=== PATIENT | female | born 1950 | race Caucasian/White ===

== ENCOUNTER → 2018-06-30 | Outpatient (CLI) | payer MEDICARE, MEDICAID ==
[~2018-06-30] MED LIST: CHOL200052 PO; ESCI20TA10 PO; LEVO75TA5 PO; OMNIPAQUE 350 MG/ML, 100ML BOTTLE ONE
== END | disposition home or self-care (01) ==
LOC: CFH 09:12
PROVIDERS: ATTEND Nurse Practitioner
DX: M51.26 Other intervertebral disc displacement, lumbar region (principal); M50.30 Other cervical disc degeneration, unspecified cervical region; M50.21 Other cervical disc displacement, high cervical region
CPT/HCPCS: 70460; 72141; 72146; 72148; 82565; Q9967

== ENCOUNTER → 2018-08-03 | Outpatient (CLI) | payer MEDICARE, MEDICAID ==
[~2018-08-03] MED LIST changes: -OMNIPAQUE 350 MG/ML, 100ML BOTTLE ONE
== END | disposition home or self-care (01) ==
LOC: STAR 08:36
PROVIDERS: ATTEND Obstetrics & Gynecology Female Pelvic Medicine and Reconstructive Surgery
DX: Z01.818 Encounter for other preprocedural examination (principal); N81.2 Incomplete uterovaginal prolapse; N39.3 Stress incontinence (female) (male); N95.0 Postmenopausal bleeding
CPT/HCPCS: 93005

== ENCOUNTER 2018-08-15 06:48 | Day surgery (SDC) | payer MEDICARE, MEDICAID ==
[~2018-08-15] VITALS: Ht 152.4 cm; Wt 68.3 kg
[~2018-08-15 06:48] MED LIST changes: +BUPIVACAINE/PF 0.25% ONE
[2018-08-15] MEDS ORDERED: EPINEPHRINE 1 MG/ML, 1ML ONE (06:49)
[2018-08-15] MEDS ORDERED: NEOMY/POLYMYXIN B GU IRR. 1 ML ONE (06:49)
[2018-08-15] MEDS ORDERED: LACTATED RINGERS 1,000 ML IV SCH (07:15)
[2018-08-15 07:40] VITALS: BP 106/72
[2018-08-15] MEDS ORDERED: GABAPENTIN 300 MG CAPSULE PO ONE (08:00)
[2018-08-15] MEDS ORDERED: SCOPOLAMINE PATCH, 1.5MG PATCH.TD72 TD ONE (08:00)
[2018-08-15] MEDS ORDERED: FENTANYL PF 250 MCG/5ML ONE (08:03)
[2018-08-15] MEDS ORDERED: MIDAZOLAM 1 MG/ML, 2ML ONE (08:03)
[2018-08-15] MEDS ORDERED: ROCURONIUM 10MG/ML,5ML ONE (08:04)
[2018-08-15] MEDS ORDERED: LIDOCAINE-MPF 2% ,5ML ONE (08:05)
[2018-08-15] MEDS ORDERED: PROPOFOL 10 MG/ML, 20ML ONE (08:05)
[2018-08-15] MEDS ORDERED: GLYCOPYRROLATE 0.2MG/1ML, 5ML ONE (08:49)
[2018-08-15] MEDS ORDERED: NEOSTIGMINE 1 MG/ML, 10ML ONE (08:49)
[2018-08-15] MEDS ORDERED: CEFOTETAN 2 GM ONE (08:49)
[2018-08-15] MEDS ORDERED: DEXAMETHASONE 4 MG/ML, 1ML ONE ×2 (09:07)
[2018-08-15] MEDS ORDERED: ONDANSETRON 2MG/ML, 2ML ONE ×2 (09:07)
[2018-08-15] MEDS ORDERED: ACETAMINOPHEN 325 MG TABLET PO PRN (09:30)
[2018-08-15] MEDS ORDERED: MEPERIDINE/PF 25MG/0.5ML IVPush PRN (09:30)
[2018-08-15] MEDS ORDERED: OXYcodone 5 MG/5 ML ORAL.SOL UDC PO PRN (09:30)
[2018-08-15] MEDS ORDERED: HYDROmorphone 2 MG/ML, 1ML IVPush PRN (09:30)
[2018-08-15] MEDS ORDERED: HALOPERIDOL 5 MG/ML IV PRN (09:30)
[2018-08-15] MEDS ORDERED: PROMETHAZINE 25 MG/ML, 1ML IV PRN (09:30)
[2018-08-15] MEDS ORDERED: hydrALAzine 20 MG/ML, 1ML IV PRN (09:30)
[2018-08-15] MEDS ORDERED: KETOROLAC 30 MG/1 ML ONE (10:43)
[2018-08-15] MEDS ORDERED: FENTANYL PF 100 MCG/2ML ONE (10:43)
[2018-08-15] MEDS: FENTANYL PF 100 MCG/2ML IV PRN ×2 (10:45→11:08)
[2018-08-15] MEDS ORDERED: KETOROLAC 30 MG/1 ML IVPush ONE (11:00)
[2018-08-15] MEDS ORDERED: OXYcodone 5 MG/5 ML ORAL.SOL UDC ONE (11:00)
== END 2018-08-15 17:25 | disposition home or self-care (01) ==
LOC: OUT 06:48
PROVIDERS: ATTEND Obstetrics & Gynecology Female Pelvic Medicine and Reconstructive Surgery
DX: D25.0 Submucous leiomyoma of uterus (principal); N81.4 Uterovaginal prolapse, unspecified; N84.0 Polyp of corpus uteri; N83.202 Unspecified ovarian cyst, left side; N83.201 Unspecified ovarian cyst, right side; N39.46 Mixed incontinence; N32.81 Overactive bladder; E03.9 Hypothyroidism, unspecified; Z98.890 Other specified postprocedural states
CPT/HCPCS: 57265; 57282; 57288; 58552; 88305; C1771; J0171; J1100; J1885; J2250; J2405; J2704; J2710; J3010; J3490

== ENCOUNTER 2020-12-31 07:35 | Outpatient (CLI) | payer MEDICARE, MEDICAID ==
[~2020-12-31 07:35] MED LIST changes: -BUPIVACAINE/PF 0.25% ONE
[2020-12-31 08:05] LABS: ALBUMIN 3.7 g/dL (3.4-5.0); ANION GAP 3 mmol/L (5-15); CALCIUM 8.8 mg/dL (8.5-10.1); CHLORIDE 108 mmol/L (98-107)
[2020-12-31 08:16] LABS: ALANINE AMINOTRANSFERASE 20 U/L (12-78); ALKALINE PHOSPHATASE 58 U/L (45-117); BILIRUBIN,TOTAL 0.7 mg/dL (0.2-1.0); CHOL/HDL RATIO 2.2; CHOLESTEROL, TOTAL 191 mg/dL (140-239); CREATININE 0.78 mg/dL (0.55-1.02); FREE T4 (FREE THYROXINE) 1.07 ng/dL (0.76-1.46); HDL CHOL % 45 % (28-40); HDL CHOLESTEROL (DIRECT) 85 mg/dL (40-60); LDL CHOLESTEROL,CALCULATED 87 mg/dL (54-169); TOTAL PROTEIN 7.1 g/dL (6.4-8.2); TRIGLYCERIDES 95 mg/dL (50-200); VLDL CHOLESTEROL 19 mg/dL (0-25)
== END 2020-12-31 23:59 | disposition home or self-care (01) ==
LOC: LAB 07:35
PROVIDERS: ATTEND Internal Medicine
DX: E03.9 Hypothyroidism, unspecified (principal); E78.5 Hyperlipidemia, unspecified
CPT/HCPCS: 36415; 80053; 80061; 82306; 84439; 84443